=== PATIENT | female | born 1945 | race Caucasian/White ===

== ENCOUNTER 2016-11-19 10:58 | Inpatient (IN) | payer MEDICARE, OTHER ==
[2016-11-12 12:45] LABS: HEMOGLOBIN 10.9 g/dL (12.0-16.0)
[2016-11-12 12:46] LABS: HEMATOCRIT 32.7 % (36.0-48.0)
[2016-11-12 13:00] LABS: BUN (BLOOD UREA NITROGEN) 31 MG/DL (6-23); CALCIUM, SERUM 8.8 MG/DL (8.5-10.4); CHLORIDE, SERUM 110 MMOL/L (96-112); CO2 (CARBON DIOXIDE) 24 MMOL/L (24-34); CREATININE 1.27 MG/DL (0.55-1.02); GFR AFRICAN AMERICAN 49 ML/MIN (>=60); GFR NON AFRICAN AMERICAN 42 ML/MIN (>=60); GLUCOSE, SERUM 107 MG/DL (60-99); POTASSIUM, SERUM 4.6 MMOL/L (3.5-5.3); SODIUM, SERUM 143 MMOL/L (135-148)
[2016-11-12 13:55] LABS: ASCORBIC ACID (UR NOT ORDER) NEG (NEG); BILIRUBIN, URINE NEGATIVE (NEG); KETONE, URINE NEGATIVE (NEG); LEUKOCYTE ESTERASE(NOT OR LARGE (NEG); WBC (NOT ORDERED) (RFLEX) > 182 (0-5)
--- NOTE | ~2016-11-19 | OP ---
Record Of Operation [facility] [address] [place]. [address] NAME: RAMSEY SEGURA : 43 STATUS : ADM IN PAT#: [id number] AGE: 71 ADM/REG DATE : 11/19/16 MR#: [id number] REPORT SERV DATE: 11/19/16 DICTATED BY: DUANE NELSON JR. DATE: 11/19/16 REPORT STATUS : Draft TRANSCRIBED BY: MODL DATE: 11/19/16 DATE OF PROCEDURE: 11/19/2016 SURGEON: Duane Nelson M.D. PREOPERATIVE DIAGNOSIS: Left angiomyolipoma. POSTOPERATIVE DIAGNOSIS: Left angiomyolipoma. PROCEDURE PERFORMED: Laparoscopic left nephrectomy. COMPLICATIONS: None. CONSULTATIONS: None. ANESTHESIA: General with an endotracheal tube. SPECIMENS: Left kidney. DRAINS: A 16-Uzbek Sanchez catheter. ESTIMATED BLOOD LOSS: 75 mL. INDICATION: Mrs. Segura is a 71-year-old female, who is noted to have a very large angiomyolipoma filling the lower half of her kidney including the renal hilum. There was some concern for an enhancing area within the center of the angiomyolipoma which was suspicious for potential malignancy. She comes today for laparoscopic nephrectomy and possible open nephrectomy. PROCEDURE IN DETAIL: After the patient was identified and proper informed consent was obtained, she was taken to the operating room. General anesthesia was performed without complication using an endotracheal tube. She was then prepped and draped in normal sterile fashion in the modified thoracoabdominal position. A midline incision was made through the umbilicus and a 12 mm trocar was passed into the peritoneal cavity without difficulties. Peritoneal cavity was inspected. She had virtually no adhesions, the mass in the lower half of the kidney was visualized through the mesentery of the colon. The edge of the spleen that was visible was normal. The liver edge was also normal and the small intestine appeared normal as well. I then placed two other 12 mm trocars, one just to the left of the falciform ligament, the other in the left lower quadrant. I then placed a 5 mm trocar approximately 7 cm away from the left lower quadrant 12 mm trocar site. Using these trocars, I then began by mobilizing the left hemicolon, and incising the renal colic ligaments, and the white line of Toldt to reflect the colon, and its mesentery medially off the anterior surface of the kidney up to what I felt to be the renal hilum, and around the splenic flexure for a short distance. I reflected the mesentery down off Gerota's fascia until I was able to identify the gonadal vein. I dissected lateral to this and identified the ureter. The ureter was ligated and transected, and I began dissecting posterior and Record Of Operation [facility] [address] [place]. [address] NAME: RAMSEY SEGURA : 43 STATUS : ADM IN PAT#: [id number] AGE: 71 ADM/REG DATE : 11/19/16 MR#: [id number] REPORT SERV DATE: 11/19/16 DICTATED BY: DUANE NELSON JR. DATE: 11/19/16 REPORT STATUS : Draft TRANSCRIBED BY: DASIA DATE: 11/19/16 inferior to the kidney, and identified several large perforating vessels from the lateral side wall. I attempted to ligate these with hemoclips, however, these were very friable and fragile vessels. I then ended up using a GEE stapling device across this lower portion of Gerota's fascia to ligate and transect these large dilated veins. She had similar venous structures medially as well inferior to the hilum, and these were carefully dissected out, and ligated using hemoclips, and using the Harmonic scalpel. I then followed the gonadal vein superiorly until I got to where I felt like the renal hilum should be, however, the kidney appeared to be somewhat rotated, and the hilum was kind of hidden behind what appeared to be a kind of the lower pole of the kidney, and I was unable to really visualize the kidney hilum at all. I was also abutting the tail of the pancreas and what was felt to be the splenic artery. I then decided to turn my attention to the lateral kidney to try to mobilize the kidney and free it up, so, that I could move it away from this area of the tail of the pancreas and the splenic artery. This was completed and I had the kidney virtually freed up everywhere except for the absolute superior pole and the renal hilum. The specimen kidney and tumor were so large, I had a difficult time moving the specimen around using conventional laparoscopic instruments. I was concerned about damage or injury to the kidney or surrounding structures. I decided to place my hand within the abdomen. I connected the lower quadrant incision sites and placed a hand port in the left lower quadrant. I was then able to manipulate the kidney much more easily and isolate the renal hilum away from the apex of the pancreas, and the splenic artery, and using some individual clips on some neovascularity around the hilum. I was able to identify the renal artery and renal vein, these were ligated and transected using an endovascular GEE stapling device. The renal artery appeared to branch off the splenic artery. Once, the kidney had been freed from the retroperitoneum, I irrigated the retroperitoneum, and inspected for hemostasis, and once I was satisfied that the hemostasis was good. I removed the kidney specimen through the hand port incision. I then irrigated the retroperitoneum and closed the umbilical incision using a #1 Vicryl suture in a [id number] fashion in the umbilicus, and the hand port incision was closed using 0 looped PDS in two layers, reapproximating the rectus and transabdominal as muscles, as 3-0 Vicryl was used in the Winifred's fascia, and a 4-0 Monocryl on the skin. The patient was awakened in the operating room, and transferred to the postanesthesia care unit in stable condition. BRADLEY/DASIA Duane Nelson Jr., M.D. / [id number] CC: Shanna Devine Jr., [place]
[~2016-11-19 10:58] MED LIST: ATV1 PO; DILT-XR120 MG PO; FERROUS SULFATE PO; HYT5 PO; KLOR-CON M2020 MEQ PO; NORCO1 TA2 PO; PRILO PO; PRIN20 PO; SINGULAIR1 PO; VITAMIN D400 UNI1 PO
[2016-11-19 17:02] LABS: BASOPHILS 0.2 %; BASOPHILS ABSOLUTE 0.01 10/3/uL (0.0-0.16); EOSINOPHILS 0.4 %; EOSINOPHILS ABSOLUTE 0.02 10/3/uL (0.0-0.53); HEMATOCRIT 28.8 % (36.0-48.0); HEMOGLOBIN 9.5 g/dL (12.0-16.0); IMMATURE GRANULOCYTES 0.4 %; IMMATURE GRANULOCYTES ABSOLUTE 0.02 10/3/uL (0.0-0.11); LYMPHOCYTES ABSOLUTE 0.74 10/3/uL (0.67-4.30); MANUAL DIFF NO %; MEAN CORPUSCULAR HEMOGLOB 29.5 pg (26.0-34.0); MEAN CORPUSCULAR VOLUME 89.4 fL (80-100); MEAN PLATELET VOLUME 9.5 fL (9.2-13.0); MONOCYTES 2.1 %; MONOCYTES ABSOLUTE 0.12 10/3/uL (0.21-1.20); NEUTROPHILS 83.9 %; PLATELET COUNT 186 10/3/uL (150-400); RBC DISTRIBUTION WIDTH 13.4 % (12.0-16.0); RED CELL COUNT 3.22 10/6/uL (4.0-5.6); WHITE BLOOD CELLS 5.7 10/3/uL (4.5-10.5)
[2016-11-19 17:18] LABS: CALCIUM, SERUM 8.4 MG/DL (8.5-10.4); CHLORIDE, SERUM 111 MMOL/L (96-112); CO2 (CARBON DIOXIDE) 23 MMOL/L (24-34); POTASSIUM, SERUM 4.2 MMOL/L (3.5-5.3); SODIUM, SERUM 143 MMOL/L (135-148)
[2016-11-19 17:20] LABS: BUN (BLOOD UREA NITROGEN) 18 MG/DL (6-23); CREATININE 2.24 MG/DL (0.55-1.02); GFR AFRICAN AMERICAN 25 ML/MIN (>=60); GFR NON AFRICAN AMERICAN 21 ML/MIN (>=60); GLUCOSE, SERUM 137 MG/DL (60-99)
[2016-11-20 06:59] LABS: HEMATOCRIT 28.4 % (36.0-48.0); HEMOGLOBIN 9.5 g/dL (12.0-16.0); MEAN CORPUS HGB CONC 33.5 g/dL (32.0-36.0); MEAN CORPUSCULAR HEMOGLOB 30.1 pg (26.0-34.0); MEAN CORPUSCULAR VOLUME 89.9 fL (80-100); MEAN PLATELET VOLUME 9.7 fL (9.2-13.0); PLATELET COUNT 215 10/3/uL (150-400); RBC DISTRIBUTION WIDTH 13.3 % (12.0-16.0); RED CELL COUNT 3.16 10/6/uL (4.0-5.6)
[2016-11-20 07:02] LABS: MANUAL DIFF YES %
[2016-11-20 07:22] LABS: BAND NEUTROPHILS 16 %; LYMPHOCYTES 3 %; LYMPHOCYTES ABSOLUTE (CALC) 0.33 10/3/uL (0.67-4.30); MONOCYTES 4 %; MONOCYTES ABSOLUTE (CALC) 0.44 10/3/uL (0.21-1.20); NEUTROPHILS ABSOLUTE (CALC) 10.23 10/3/uL (2.02-8.40); SEGMENTED NEUTROPHIL (0) 77 %; TOTAL NUCLEATED CELLS 100
[2016-11-20 07:23] LABS: PLATELET ESTIMATE ADQ (ADEQUATE)
[2016-11-20 07:26] LABS: RBC MORPHOLOGY NORM (NORMAL)
[2016-11-20 07:38] LABS: BUN (BLOOD UREA NITROGEN) 19 MG/DL (6-23); CALCIUM, SERUM 8.5 MG/DL (8.5-10.4); CHLORIDE, SERUM 112 MMOL/L (96-112); CO2 (CARBON DIOXIDE) 23 MMOL/L (24-34); GLUCOSE, SERUM 161 MG/DL (60-99); SODIUM, SERUM 142 MMOL/L (135-148)
[2016-11-20 07:39] LABS: CREATININE 1.41 MG/DL (0.55-1.02); GFR AFRICAN AMERICAN 43 ML/MIN (>=60); GFR NON AFRICAN AMERICAN 37 ML/MIN (>=60); POTASSIUM, SERUM 5.2 MMOL/L (3.5-5.3)
[2016-11-21 06:38] LABS: BASOPHILS 0.1 %; BASOPHILS ABSOLUTE 0.01 10/3/uL (0.0-0.16); EOSINOPHILS ABSOLUTE 0.07 10/3/uL (0.0-0.53); HEMATOCRIT 26.5 % (36.0-48.0); HEMOGLOBIN 8.8 g/dL (12.0-16.0); IMMATURE GRANULOCYTES 0.3 %; IMMATURE GRANULOCYTES ABSOLUTE 0.02 10/3/uL (0.0-0.11); LYMPHOCYTES 14.5 %; LYMPHOCYTES ABSOLUTE 0.98 10/3/uL (0.67-4.30); MEAN CORPUS HGB CONC 33.2 g/dL (32.0-36.0); MEAN CORPUSCULAR HEMOGLOB 30.3 pg (26.0-34.0); MEAN CORPUSCULAR VOLUME 91.4 fL (80-100); MEAN PLATELET VOLUME 10.1 fL (9.2-13.0); MONOCYTES 6.5 %; MONOCYTES ABSOLUTE 0.44 10/3/uL (0.21-1.20); NEUTROPHILS 77.6 %; NEUTROPHILS ABSOLUTE 5.25 10/3/uL (2.02-8.40); PLATELET COUNT 187 10/3/uL (150-400); RBC DISTRIBUTION WIDTH 13.7 % (12.0-16.0); WHITE BLOOD CELLS 6.8 10/3/uL (4.5-10.5)
[2016-11-21 06:41] LABS: MANUAL DIFF NO %
[2016-11-21 06:52] LABS: CALCIUM, SERUM 8.3 MG/DL (8.5-10.4); CHLORIDE, SERUM 111 MMOL/L (96-112); CO2 (CARBON DIOXIDE) 22 MMOL/L (24-34); CREATININE 1.56 MG/DL (0.55-1.02); GFR AFRICAN AMERICAN 38 ML/MIN (>=60); GFR NON AFRICAN AMERICAN 33 ML/MIN (>=60); SODIUM, SERUM 143 MMOL/L (135-148)
[2016-11-21 06:54] LABS: BUN (BLOOD UREA NITROGEN) 15 MG/DL (6-23); GLUCOSE, SERUM 123 MG/DL (60-99); POTASSIUM, SERUM 4.7 MMOL/L (3.5-5.3)
[2016-11-21] MEDS ORDERED: DIL2TAB PO (08:59)
== END 2016-11-21 14:10 | disposition home or self-care (01) | DRG 983 ==
LOC: SDC/OF 10:58 → 4SO 19:08
PROVIDERS: Urology
PROC: 0TT14ZZ Resection of Left Kidney, Percutaneous Endoscopic Approach (ICD-10-PCS; principal; 2016-11-19 12:45)
DX: D17.71 Benign lipomatous neoplasm of kidney (principal); I10 Essential (primary) hypertension; Z23 Encounter for immunization; Z79.82 Long term (current) use of aspirin; E78.00 Pure hypercholesterolemia, unspecified; K21.9 Gastro-esophageal reflux disease without esophagitis
CPT/HCPCS: 36415; 80048; 81001; 83735; 85014; 85018; 85025; 86850; 86900; 86901; 87077; 87086; 87186; 88307; 88341; 88342; 88360; 90662; 93005; A9270-GY; G0008; J0690; J0694; J1170; J2250; J2270; J2405; J2710; J2795; J3010; P9045